=== PATIENT | female | born 2000 | race Caucasian/White ===

== ENCOUNTER 2022-06-23 10:48 | Outpatient (CLI) | payer BC, SELFPAY ==
[2022-06-23 11:35] LABS: Potassium 4.5 mmol/L (3.4-5.0)
== END 2022-06-23 10:49 | disposition home or self-care (01) ==
LOC: ANHLAB 11:00
DX: Z79.899 Other long term (current) drug therapy (principal)
CPT/HCPCS: 36415; 84132